=== PATIENT | female | born 1935 | race Caucasian/White ===

== ENCOUNTER → 2016-04-17 | Outpatient (CLI) | payer OTHER, MEDICARE | LOC: FIMAGING 10:39 | PROVIDERS: ATTEND Internal Medicine | DX: M47.896 Other spondylosis, lumbar region (principal); M47.897 Other spondylosis, lumbosacral region; M43.16 Spondylolisthesis, lumbar region ==

== ENCOUNTER → 2016-05-27 | Outpatient (CLI) | payer OTHER, MEDICARE | LOC: FIMAGING 13:14 | DX: Z12.31 Encounter for screening mammogram for malignant neoplasm of breast (principal) | CPT/HCPCS: G0202 ==

== ENCOUNTER → 2016-11-12 | Outpatient (CLI) | payer OTHER, MEDICARE | LOC: FCPNEURO 20:00 | PROVIDERS: ATTEND Psychiatry & Neurology Sleep Medicine | DX: G47.33 Obstructive sleep apnea (adult) (pediatric) (principal) ==

== ENCOUNTER → 2017-01-07 | Outpatient (CLI) | payer OTHER, MEDICARE | LOC: BHFA 16:00 | PROVIDERS: ATTEND Internal Medicine Cardiovascular Disease | DX: R00.2 Palpitations (principal) ==

== ENCOUNTER → 2017-06-01 | Outpatient (CLI) | payer OTHER, MEDICARE | LOC: FIMAGING 13:10 | PROVIDERS: ATTEND Internal Medicine | DX: Z12.31 Encounter for screening mammogram for malignant neoplasm of breast (principal); Z13.820 Encounter for screening for osteoporosis ==

== ENCOUNTER 2017-08-14 08:00 | Emergency (ER) | payer OTHER, MEDICARE ==
[2017-08-14 08:12] VITALS: BP 158/72
--- NOTE | 2017-08-14 08:53 | EDPHY ---
H & P Time Seen by Provider: 08/14/17 08:32 HPI/ROS: CHIEF COMPLAINT: Right but hematoma, shoulder pain HISTORY OF PRESENT ILLNESS: The patient is an 82-year-old female who presents emergency department with bruising on her right buttock area and mild pain and right shoulder. The patient was repelling 3 days ago when she swung into the rock. She sustained a bruise to her right buttock. It continues to be discolored. She feels of a small mass at the bruise site. She has mild discomfort. She is able to ambulate. She has still been active. No weakness or numbness. She has mild right shoulder pain over her deltoid. She denies limited range of motion. REVIEW OF SYSTEMS: My complete review of systems is negative except as mentioned in the HPI. Past Medical/Surgical History: hypothyroid/knee replacement Smoking Status: Never smoked Physical Exam: Vitals noted GENERAL: Well-appearing, in no acute distress, alert. HEENT: Eyes normal to inspection, normal pharynx, no signs of dehydration. NECK: [No thyromegaly, no lymphadenopathy, supple. RESPIRATORY: Clear to auscultation bilaterally, no rales, rhonchi or wheezing. CVS: Regular rate and rhythm, no rubs, murmurs, or gallops. ABDOMEN: Soft, nontender, nondistended, no organomegaly. BACK: Normal to inspection, no CVA tenderness. Pelvis: Patient i bruising over her right buttock. This appears old. There is mild firmness at the site of ecchymosis but no fluctuance. The bruise appears to be healing normally. SKIN: Normal color, no rash, warm, dry. No pallor. EXTREMITIES: Patient's right shoulder appears normal. No bruising. Full range of motion. No rotator cuff discomfort. No pedal edema, no calf tenderness, no Homans sign or cords, no joint swelling. NEURO/PSYCH: Alert and oriented x3, normal mood and affect, normal motor sensory exam. No obvious cranial nerve deficit. Constitutional: Initial Vital Signs Temperature (C) 36.8 C 08/14/17 08:10 Heart Rate 78 08/14/17 08:10 Respiratory Rate 18 08/14/17 08:10 Blood Pressure 158/72 H 08/14/17 08:10 O2 Sat (%) 98 08/14/17 08:10 O2 Delivery Mode Room Air Allergies/Adverse Reactions: codeine [Codeine] Allergy (Mild, Verified 07/24/15 12:47) nausea tramadol Allergy (Verified 07/24/15 12:47) aggitation Home Medications: Medication Instructions Recorded Levothyroxine Sodium [Synthroid] 88 mcg PO DAILY 07/26/10 Medical Decision Making ED Course/Re-evaluation: In the emergency department I discussed possible etiologies with the patient. I answered all her questions. The patient has no bony tenderness palpation. She is able to ambulate without difficulty. She can squat at bedside. I do not feel she needs pelvis or hip x-rays. She has full range of motion of her shoulder with no tenderness palpation. I do not feel she needs a shoulder x- ray. I discussed this with the patient. She was given warnings prior to leaving. Differential Diagnosis: My differential includes but is not limited to contusion, sprain, strain, fracture, rotator cuff injury Departure - Departure Disposition: Home, Routine, Self-Care Clinical Impression: Traumatic hematoma of buttock Qualifiers: Encounter type: initial encounter Qualified Code(s): S30.0XXA - Contusion of lower back and pelvis, initial encounter Condition: Good Instructions: Hematoma (ED) Additional Instructions: Return with increasing pain, swelling, weakness, numbness or any other concerns. You can continue your activities. Referrals: Austyn Leung MD [Primary Care Provider] - 2-3 days, if not improved
== END 2017-08-14 08:59 | disposition home or self-care (01) ==
DX: S30.0XXA Contusion of lower back and pelvis, initial encounter (principal); W22.8XXA Striking against or struck by other objects, initial encounter

== ENCOUNTER → 2017-09-23 | Outpatient (CLI) | payer OTHER, MEDICARE | LOC: BHFA 11:00 | PROVIDERS: ATTEND Internal Medicine Cardiovascular Disease | DX: R53.83 Other fatigue (principal) ==

== ENCOUNTER → 2018-03-30 | Outpatient (CLI) | payer OTHER, MEDICARE | LOC: BHFA 15:30 | PROVIDERS: ATTEND Internal Medicine Interventional Cardiology | DX: R00.2 Palpitations (principal) ==

== ENCOUNTER → 2018-05-11 | Outpatient (CLI) | payer OTHER, MEDICARE ==
[~2018-05-11] MED LIST: IOPAMIDOL (ISOVUE 370) 100 ML BTL IV ONE
== END ==
LOC: FIMAGING 17:00
PROVIDERS: ATTEND Internal Medicine
DX: I25.84 Coronary atherosclerosis due to calcified coronary lesion (principal); I65.22 Occlusion and stenosis of left carotid artery; M50.322 Other cervical disc degeneration at C5-C6 level
CPT/HCPCS: 70496; 70498; Q9967

== ENCOUNTER → 2018-07-11 | Outpatient (CLI) | payer OTHER, MEDICARE | LOC: FIMAGING 14:58 | PROVIDERS: ATTEND Internal Medicine | DX: Z12.31 Encounter for screening mammogram for malignant neoplasm of breast (principal) ==

== ENCOUNTER → 2018-08-19 | Outpatient (CLI) | payer OTHER, MEDICARE | LOC: FIMAGING 09:46 ==